=== PATIENT | female | born 1975 | race Hispanic/Latino ===

== ENCOUNTER 2018-12-16 14:13 | Emergency (ER) | payer BC, OTHER, SELFPAY ==
[2018-12-16] MEDS ORDERED: NA CHLORIDE 0.9% 1,000 ML ONE (15:05)
[2018-12-16] MEDS ORDERED: MECLIZINE HCL 12.5 MG TAB ONE (15:05)
[2018-12-16 15:11] LABS: Absolute Lymphocytes (CBC) 2.4 K/uL (0.7-4.9); Basophils % 0.8 % (0-1.3); Hematocrit 35.4 % (36.0-45.0); Lymphocytes % 31.4 % (15.3-44.8); RBC Red Blood Cell Count 4.48 M/uL (3.86-4.86)
--- NOTE | 2018-12-16 15:22 | RAD REPORT ---
EXAM DESCRIPTION: CT - Head Brain Wo Cont - 12/16/2018 3:07 pm CLINICAL HISTORY: vertigo COMPARISON: None. TECHNIQUE: Computed axial tomography of the head was obtained. IV contrast was not requested. All CT scans are performed using dose optimization technique as appropriate and may include automated exposure control or mA/KV adjustment according to patient size. FINDINGS: An intracranial bleed is not seen . The ventricles are normal in caliber. No extra-axial fluid collection is noted. Fluid within the sinuses/ mastoids is not seen. IMPRESSION: No acute intracranial abnormality is seen. If patient's symptoms persist MRI of the bra in would be recommended.
[2018-12-16 15:34] LABS: BUN Blood Urea Nitrogen 10 mg/dL (7-18); Bicarbonate 25 mmol/L (21-32); Glucose Level 202 mg/dL (74-106); Magnesium 2.4 mg/dL (1.8-2.4); Sodium Level 148 mmol/L (136-145); Troponin (Emerg Dept Use Only) < 0.02 ng/mL (0.0-0.045)
[2018-12-16 15:47] LABS: Protime INR 0.96
--- NOTE | 2018-12-16 17:31 | EKG ---
Test Date: 2018-12-16 Test Time: 14:58:56 [employer] Operator: RICARDO MEASUREMENT RESULTS: Intervals: Rate: 69 WV: 162 QRSD: 86 QT: 414 QTc: 443 [place]: P: 44 WV: 162 QRS: 34 T: 27 INTERPRETIVE STATEMENTS: Normal sinus rhythm Normal ECG No previous ECG available for comparison Electronically Signed On 12-16-18 17:30:23 CDT by Sebastien Quiñones
--- NOTE | 2018-12-16 17:57 | RAD REPORT ---
EXAM DESCRIPTION: MRI - Brain Wo Cont - 12/16/2018 5:39 pm CLINICAL HISTORY: Vertigo COMPARISON: 12/16/[address] TECHNIQUE: Axial, sagittal, and coronal magnetic images of the brain were obtained. Contrast was not requested FINDINGS: No abnormal signal is present within the brain. Diffusion-weighted/ADC mapping does not reveal evidence of acute infarction. The ventricles are normal caliber. An extra-axial fluid collection is not present The sinuses and mastoids are clear. IMPRESSION: Unremarkable unenhanced brain MRI
--- NOTE | 2018-12-16 18:16 | EDPHYS ---
Physician Documentation [facility] Name: Bethany Pruett Age: 43 yrs Sex: Female : 1975 Arrival Date: 12/16/2018 Time: 14:14 Bed 4 Private MD: Miguel Pineda ED Physician Sami Harrell HPI: 12/16 15:11 This 43 yrs old Female presents to ER via Wheelchair with complaints of rn Dizziness. 15:11 The patient or guardian reports. rn 15:13 The patient presents with dizziness, lightheadedness, vertigo. Onset: The rn symptoms/episode began/occurred 3 day(s) ago. Modifying factors: The symptoms are alleviated by holding head still, the symptoms are aggravated by movement of head, changing position. Severity of symptoms: At their worst the symptoms were moderate in the emergency department the symptoms have improved. The patient has not experienced similar symptoms in the past. REports 3 days of feeling off balance and spinning, intermittent, worse when turns head either way, no head injury, no fever, no focal neurological complaint. NO chest pain/sob/abd pain/vomiting/diarrhea.. Historical: - Allergies: 14:25 No Known Allergies; la1 - PMHx: 14:25 Diabetes - NIDDM; Hypertension; tachycardia; la1 - Immunization history:: Adult Immunizations up to date. - Social history:: Smoking status: Patient/guardian denies using tobacco. - Ebola Screening: : No symptoms or risks identified at this time. - Family history:: not pertinent. - Hospitalizations: : No recent hospitalization is reported. ROS: 15:13 Constitutional: Negative for fever, chills, and weight loss, Eyes: Negative for injury, rn pain, redness, and discharge, Neck: Negative for injury, pain, and swelling, Cardiovascular: Negative for chest pain, palpitations, and edema, Respiratory: Negative for shortness of breath, cough, wheezing, and pleuritic chest pain, Abdomen/GI: Negative for abdominal pain, nausea, vomiting, diarrhea, and constipation, Back: Negative for injury and pain, : Negative for injury, bleeding, discharge, and swelling, MS/Extremity: Negative for injury and deformity, Skin: Negative for injury, rash, and discoloration, Neuro: Negative for headache, weakness, numbness, tingling, and seizure. Exam: 15:13 Constitutional: This is a well developed, well nourished patient who is awake, alert, rn and in no acute distress. Head/Face: Normocephalic, atraumatic. Eyes: Pupils equal round and reactive to light, extra-ocular motions intact. Lids and lashes normal. Conjunctiva and sclera are non-icteric and not injected. Cornea within normal limits. Periorbital areas with no swelling, redness, or edema. ENT: MMM Neck: Trachea midline, no thyromegaly or masses palpated, and no cervical lymphadenopathy. Supple, full range of motion without nuchal rigidity, or vertebral point tenderness. No Meningismus. Cardiovascular: Regular rate and rhythm. No pulse deficits. Respiratory: Lungs have equal breath sounds bilaterally, clear to auscultation. No increased work of breathing, no retractions or nasal flaring. Abdomen/GI: soft, non-tender MS/ Extremity: Pulses equal, no cyanosis. Neurovascular intact. Full, normal range of motion. Equal circumference. Neuro: Awake and alert, GCS 15, oriented to person, place, time, and situation. Cranial nerves II-XII grossly intact. Motor strength 5/5 in all extremities. Sensory grossly intact. Cerebellar exam normal.NO nystagmus. Vital Signs: 14:25 BP 121 / 72; Pulse 72; Resp 16; Temp 97.3; Pulse Ox 100% on R/A; Weight 110.68 kg; la1 15:19 BP 103 / 53; Pulse 72; Resp 21; Pulse Ox 97% on R/A; sv 16:09 BP 104 / 52; Pulse 75; Resp 20; Pulse Ox 97% ; sv 16:40 BP 95 / 59; Pulse 79; Resp 23; Pulse Ox 99% ; sv 17:52 BP 112 / 56; Pulse 70; Resp 19; Pulse Ox 100% ; sv MDM: 14:39 Patient medically screened. rn 18:13 Differential diagnosis: cardiac arrhythmia, CVA, hypovolemia, idiopathic dizziness, rn vertigo. Data reviewed: vital signs, nurses notes, lab test result(s), EKG, radiologic studies, CT scan, MRI, and as a result, I will discharge patient. Counseling: I had a detailed discussion with the patient and/or guardian regarding: the historical points, exam findings, and any diagnostic results supporting the discharge/admit diagnosis, lab results, radiology results, the need for outpatient follow up, to return to the emergency department if symptoms worsen or persist or if there are any questions or concerns that arise at home. Response to treatment: the patient's symptoms have markedly improved after treatment, and as a result, I will discharge patient. Special discussion: I discussed with the patient/guardian in detail that at this point there is no indication for admission to the hospital. It is understood, however, that if the symptoms persist or worsen the patient needs to return immediately for re-evaluation. Based on the history and exam findings, there is no indication for further emergent testing or inpatient evaluation. I discussed with the patient/guardian the need to see the neurologist for further evaluation of the symptoms. ED course: Pt feels much better after fluids and meclizine, reports mild suprapubic discomfort and increased frequency, will dc home with meclizine/macrobid and neuro f/u. . 12/16 14:55 Order name: Basic Metabolic Panel; Complete Time: 15:37 12/16 14:55 Order name: CBC with Diff; Complete Time: 15:37 12/16 14:55 Order name: Magnesium; Complete Time: 15:37 12/16 14:55 Order name: Protime (+inr); Complete Time: 16:07 12/16 14:55 Order name: Ptt, Activated; Complete Time: 16: 12/16 14:55 Order name: Troponin (emerg Dept Use Only); Complete Time: 15:37 12/16 14:55 Order name: CT Head Brain wo Cont; Complete Time: 15:37 12/16 14:55 Order name: EKG; Complete Time: 14:56 rn 12/16 14:55 Order name: Cardiac monitoring; Complete Time: 15:18 rn 12/16 15:38 Order name: Brain Wo Cont MRI; Complete Time: 18:10 rn 12/16 17:34 Order name: Urine Dipstick--Ancillary (enter results); Complete Time: 18:25 12/16 17:34 Order name: Urine --Ancillary (enter results); Complete Time: 18:25 12/16 14:55 Order name: EKG - Nurse/Tech; Complete Time: 15:04 12/16 14:55 Order name: IV Saline Lock; Complete Time: 15:04 rn 12/16 14:55 Order name: Labs collected and sent; Complete Time: 15:05 rn 12/16 14:55 Order name: NPO; Complete Time: 15:05 rn 12/16 14:55 Order name: O2 Per Protocol; Complete Time: 15:05 rn 12/16 14:55 Order name: O2 Sat Monitoring; Complete Time: 15:05 rn 12/16 14:55 Order name: Urine Dipstick-Ancillary (obtain specimen); Complete Time: 18:31 rn Administered Medications: 15:18 Drug: Meclizine 50 mg Route: PO; sv 16:07 Follow up: Response: No adverse reaction sv 15:18 Drug: NS 0.9% 1000 ml Route: IV; Rate: 1000 ml; Site: left antecubital; sv 18:48 Follow up: Response: No adverse reaction; IV Status: Completed infusion; IV Intake: sv 1000ml Disposition: 12/16/18 18:15 Discharged to Home. Impression: Vertigo, Urinary tract infection, site not specified. - Condition is Stable. - Discharge Instructions: Urinary Tract Infection, Adult, Vertigo. - Prescriptions for Meclizine 25 mg Oral Tablet - take 1 tablet by ORAL route every 8 hours As needed; 30 tablet. Macrobid 100 mg Oral Capsule - take 1 capsule by ORAL route every 12 hours for 7 days; 14 capsule. - Medication Reconciliation Form, Thank You Letter, Antibiotic Education, Prescription Opioid Use form. - Follow up: Arvin Sauceda MD; When: As needed; Reason: Recheck today's complaints, Re-evaluation by your physician. - Problem is new. - Symptoms have improved. Signatures: Dispatcher [employer] EDCO Janet Gutierrez RN RN Sami Justice MD MD rn Attema, Lee RN RN la1 Corrections: (The following items were deleted from the chart) 18:46 18:15 12/16/2018 18:15 Discharged to Home. Impression: Vertigo; Urinary tract sv infection, site not specified. Condition is Stable. Forms are Medication Reconciliation Form, Thank You Letter, Antibiotic Education, Prescription Opioid Use. Follow up: Arvin Sauceda; When: As needed; Reason: Recheck today's complaints, Re-evaluation by your physician. Problem is new. Symptoms have improved. rn
--- NOTE | 2018-12-16 18:16 | ER ---
Nurse's Notes [facility] Name: Bethany Pruett Age: 43 yrs Sex: Female : 1975 Arrival Date: 12/16/2018 Time: 14:14 Bed 4 Private MD: Miguel Pineda Diagnosis: Vertigo;Urinary tract infection, site not specified Presentation: 12/16 14:24 Presenting complaint: Patient states: dizziness since Saturday, worse with movement of la1 head or eyes. Transition of care: patient was not received from another setting of care. Onset of symptoms was December 16, 2018. Risk Assessment: Do you want to hurt yourself or someone else? Patient reports no desire to harm self or others. Initial Sepsis Screen: Does the patient meet any 2 criteria? No. Patient's initial sepsis screen is negative. Does the patient have a suspected source of infection? No. Patient's initial sepsis screen is negative. Care prior to arrival: None. 14:24 Method Of Arrival: Wheelchair la1 14:24 Acuity: SHIRA 3 la1 Historical: - Allergies: 14:25 No Known Allergies; la1 - PMHx: 14:25 Diabetes - NIDDM; Hypertension; tachycardia; la1 - Immunization history:: Adult Immunizations up to date. - Social history:: Smoking status: Patient/guardian denies using tobacco. - Ebola Screening: : No symptoms or risks identified at this time. - Family history:: not pertinent. - Hospitalizations: : No recent hospitalization is reported. Screenin:00 Abuse screen: Denies threats or abuse. Denies injuries from another. Nutritional sv screening: No deficits noted. Tuberculosis screening: No symptoms or risk factors identified. Fall Risk None identified. Assessment: 15:00 General: Appears in no apparent distress. comfortable, well groomed, well developed, sv Behavior is calm, cooperative, appropriate for age. Pain: Denies pain. Neuro: Level of Consciousness is awake, alert, obeys commands, Oriented to person, place, time, situation, Moves all extremities. Full function Gait is steady, Speech is normal, Facial symmetry appears normal, Reports dizziness. Cardiovascular: Patient's skin is warm and dry. Rhythm is sinus rhythm. Respiratory: Airway is patent Respiratory effort is even, unlabored, Respiratory pattern is regular, symmetrical. Derm: Skin is pink, warm \T\ dry. 16:00 Reassessment: Patient appears in no apparent distress at this time. No changes from sv previously documented assessment. Patient and/or family updated on plan of care and expected duration. Pain level reassessed. Patient is alert, oriented x 3, equal unlabored respirations, skin warm/dry/pink. 17:10 Reassessment: Patient appears in no apparent distress at this time. No changes from sv previously documented assessment. Patient and/or family updated on plan of care and expected duration. Pain level reassessed. Patient is alert, oriented x 3, equal unlabored respirations, skin warm/dry/pink. 17:52 Reassessment: Patient appears in no apparent distress at this time. No changes from sv previously documented assessment. Patient and/or family updated on plan of care and expected duration. Pain level reassessed. Patient is alert, oriented x 3, equal unlabored respirations, skin warm/dry/pink. 18:43 Reassessment: Patient appears in no apparent distress at this time. No changes from sv previously documented assessment. Patient and/or family updated on plan of care and expected duration. Pain level reassessed. Patient is alert, oriented x 3, equal unlabored respirations, skin warm/dry/pink. Vital Signs: 14:25 BP 121 / 72; Pulse 72; Resp 16; Temp 97.3; Pulse Ox 100% on R/A; Weight 110.68 kg; la1 15:19 BP 103 / 53; Pulse 72; Resp 21; Pulse Ox 97% on R/A; sv 16:09 BP 104 / 52; Pulse 75; Resp 20; Pulse Ox 97% ; sv 16:40 BP 95 / 59; Pulse 79; Resp 23; Pulse Ox 99% ; sv 17:52 BP 112 / 56; Pulse 70; Resp 19; Pulse Ox 100% ; sv ED Course: 14:14 Patient arrived in ED. mr 14:15 Miguel Pineda, is Private Physician. mr 14:25 Triage completed. la1 14:26 Arm band placed on right wrist. la1 14:31 Janet Gutierrez, EUFEMIA is Primary Nurse. sv 14:35 Patient has correct armband on for positive identification. Bed in low position. Call sv light in reach. Door closed. Head of bed elevated. 14:39 Sami Harrell MD is Attending Physician. rn 15:00 Initial lab(s) drawn, by nh, sent to lab. Inserted saline lock: 20 gauge in left sv antecubital area, using aseptic technique. Blood collected. Flushed left antecubital with 5 ml normal saline. 15:[address] via stretcher. sv 15:06 EKG done, by tire service technician. reviewed by Sami Harrell MD. sm3 15:08 CT Head Brain wo Cont In Process Unspecified. EDMS 15:18 Patient moved back from CT. sv 15:22 Awaiting lab results, Awaiting radiology results. sv 16:07 Awaiting: MRI. sv 17:15 Patient moved to MRI via wheelchair. sv 17:26 Brain Wo Cont MRI In Process Unspecified. EDMS 17:50 MRI completed. em2 17:52 Patient moved back from MRI. sv 17:52 Awaiting radiology results. sv 18:15 Arvin Sauceda MD is Referral Physician. rn 18:45 No provider procedures requiring assistance completed. IV discontinued, intact, sv bleeding controlled, No redness/swelling at site. Pressure dressing applied. Administered Medications: 15:18 Drug: Meclizine 50 mg Route: PO; sv 16:07 Follow up: Response: No adverse reaction sv 15:18 Drug: NS 0.9% 1000 ml Route: IV; Rate: 1000 ml; Site: left antecubital; sv 18:48 Follow up: Response: No adverse reaction; IV Status: Completed infusion; IV Intake: sv 1000ml Intake: 18:48 IV: 1000ml; Total: 1000ml. sv Outcome: 18:15 Discharge ordered by MD. rn 18:45 Discharged to home ambulatory, with family. sv 18:45 Condition: stable 18:45 Discharge instructions given to patient, family, Instructed on discharge instructions, follow up and referral plans. medication usage, increase fluid intake Demonstrated understanding of instructions, follow-up care, medications, increasing fluid intake Prescriptions given X 2. 18:46 Patient left the ED. sv Signatures: Dispatcher [employer] EDMS Janet Gutierrez RN RN sv Rivera, Mary mr Nieto, Roman, MD MD rn Montes, Enrique em2 Jose Martin Acosta RN RN tx1 Marcela Jc 3
[2018-12-16 18:18] LABS: Urine Blood NEGATIVE (NEG); Urine Glucose NEGATIVE (NEG); Urine Protein NEGATIVE (NEG); Urine Specific Gravity 1.015 (1.005-1.030); Urine pH 8.5 (5.0-7.0)
[2018-12-16 19:57] VITALS: TEMP 97.3
[2018-12-16 20:03] VITALS: BP 112/56; O2SAT 100
== END 2018-12-16 18:46 | disposition home or self-care (01) ==
LOC: ER 14:13
DX: N39.0 Urinary tract infection, site not specified (principal); I10 Essential (primary) hypertension
CPT/HCPCS: 93005; 85025; 80048; 36415; 83735; 81025; 85610; 85730; 81003; 84484; 70450; 70551; J8597; J7030; 96360; 96361; 99285